=== PATIENT | male | born 1955 | race Caucasian/White ===

== ENCOUNTER 2019-02-23 11:32 | Emergency (ER) | payer BC ==
[~2019-02-23 11:32] MED LIST: EPINEPHrine 1 MG/10 ML Abboject SYRINGE ONE; Sodium Bicarb 50 MEQ/50 ML Abboject 8.4% SYRINGE ONE
[2019-02-23 13:01] LABS: Lavender RECEIVED; Red RECEIVED
== END 2019-02-23 11:45 | disposition expired ==
LOC: EDBD 11:32 → ERS 11:32 → EDSEX 11:32 → ERS 11:45
DX: I46.9 Cardiac arrest, cause unspecified (principal); I25.2 Old myocardial infarction; E78.5 Hyperlipidemia, unspecified; I10 Essential (primary) hypertension
CPT/HCPCS: 33010; 92950; 96374; 96375; J0171